=== PATIENT | male | born 2005 | race Two or more races ===

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

== ENCOUNTER → 2024-01-08 | Outpatient (REF) | payer OTHER | LOC: M LAB REF 22:30 | PROVIDERS: ATTEND Physician Assistant | DX: J02.9 Acute pharyngitis, unspecified (principal) ==